=== PATIENT | male | born 1955 | race Caucasian/White ===

== ENCOUNTER 2019-08-11 06:29 | Inpatient (IN) ==
--- NOTE | 2019-07-30 16:24 | ANES ---
Anesthesia Pre Procedure Eval HOME MEDICATIONS rzunjsts-dib-cjejf acid 0.4 mg-lycopene 300 mcg-lutein 250 mcg tablet 1 tab PO DAILY 10/03/18 [Last Taken Unknown] apixaban 5 mg tablet 5 mg PO BID #180 tab 10/18/18 [Last Taken Unknown] atorvastatin 40 mg tablet 40 mg PO HS #90 tab 10/18/18 [Last Taken Unknown] metoprolol succinate ER 25 mg tablet,extended release 24 hr 75 mg PO DAILY #270 tab 10/18/18 [Last Taken Unknown] Allergies/Adverse Reactions: Allergies Allergy/AdvReac Type Severity Reaction Status Date / Time procaine [From Novocain] Allergy Intermediate FAINT, Verified 07/30/19 08:44 HEART RACES codeine AdvReac Mild NAUSEA, Verified 07/30/19 08:44 HEADACHE - Planned Procedure Planned Procedure: R Arthroplasty Total Knee Medication List Reviewed:: Yes Allergies Verified: Yes Medical History (Updated 07/30/19 @ 08:20 by Martha Cornejo) Essential hypertension (Chronic) Onset Date: 01/29/12 Hyperlipidemia (Chronic) Onset Date: 2002 Atrial fibrillation (Chronic) Onset Date: ~2009 Left inguinal hernia Brain vascular malformation Onset Date: Unknown "had an episode of feeling like a bomb went off in head" Abnormal colonoscopy Onset Date: 12/14/17 Tommeraasen-tubulovillous adenoma, serrated adenoma History of cardioversion Onset Date: ~2009 Normal colonoscopy Onset Date: 07/15/04 Dr. Rajni Carreon Onset Date: Unknown Surgical History (Updated 10/03/18 @ 14:44 by Vera Bardales RN) H/O right knee surgery Onset Date: ~1969 5 knee surgery's in the 70's for right knee injury-4 were scopes H/O shoulder surgery Onset Date: ~2005 right History of tonsillectomy Onset Date: Unknown History of vasectomy Onset Date: Unknown Family History (Updated 10/03/18 @ 14:20 by Vera Bardales RN) Brother Alive and well Sister Alive and well Father , 56 Lung cancer, Onset Age: 56 Heavy smoker Mother , 73 Heart failure, Onset Age: 73 - Family Anesthesia History Family History:: no untoward family reactions to anesthesia, no familial bleeding tendencies, no family history of clotting disorders, no family history of premature - Airway/Neck/Teeth Within Normal Limits:: Yes Teeth Condition: intact Denture Type: Perm crown/bridge Mallampatti Score: 1 Thyromental (T-M) distance: > 6 cm Mandibulo Hyoid distance: > 3 cm - Respiratory Smoking Status: Former smoker Discussed smoking cessation including day of surgery: No Sleep Apnea currently treated: No Sleep Apnea by current assessment: No Discussed Risks/Treatment of JESSICA: No - Cardiovascular Tolerate Activity: Fair Heart Sounds: S1 & S2, Regular - Anesthesia Assessment and Plan ASA Class: PS, III Anesthesia Type Plan: Block - Right ultrasound guided adductor canal nerve block, Spinal
[~2019-08-11 06:29] MED LIST: MORPHINE SULFATE 15 MG TABLET.SA PO PRN; NORMAL SALINE IJ PRN; ROPIVACAINE HCL IJ PRN; ROPIVACAINE HCL/PF 40 MG in NORMAL SALINE 16 ML IJ PRN; TRANEXAMIC ACID 1,000 MG in NORMAL SALINE 100 ML IV PRN; ceFAZolin SODIUM 1 GM VIAL IV PRN
[2019-08-11] MEDS: RINGER'S SOLUTION,LACTATED 1,000 ML IV PRN ×2 (07:13→09:30)
[2019-08-11] MEDS ORDERED: MAG HYDROX/ALUMINUM HYD/SIMETH 30 ML UDC PO PRN (10:14)
[2019-08-11] MEDS ORDERED: ONDANSETRON HCL/PF 2 MG/ML VIAL IV PRN (10:14)
[2019-08-11] MEDS ORDERED: MORPHINE SULFATE 2 MG/ML DISP.SYRIN IV PRN (10:14)
[2019-08-11] MEDS ORDERED: DEXTROSE 5%-LACTATED RINGERS 1,000 ML IV PRN (10:14)
[2019-08-11] MEDS ORDERED: diphenhydrAMINE HCL 50 MG/ML VIAL IV PRN (10:14)
[2019-08-11] MEDS ORDERED: ACETAMINOPHEN 500 MG TABLET PO PRN (10:14)
[2019-08-11] MEDS ORDERED: MAGNESIUM HYDROXIDE 30 ML UDC PO PRN (10:14)
[2019-08-11] MEDS ORDERED: ZOLPIDEM TARTRATE 5 MG TABLET PO PRN (10:14)
--- NOTE | 2019-08-11 10:20 | OR ---
Operative Report - Dictated Report Narrative: Date: 08/11/2019 Preoperative diagnosis: Right knee degenerative joint disease. Postoperative diagnosis: Right knee degenerative joint disease. Procedure: Right total knee arthroplasty. Surgeon: Abhilash Fitzpatrick M.D. Silverware Supervisor: Brad Scott PA-C (provided and essential set of skilled, educated hands that assisted with transfer, positioning, prepping, draping, manipulation, retraction, placement of jigs, injection, insertion of implants, irrigation, closure wounds, and dressings all of which could not be performed by the available surgical crew) Anesthesia: General and local periarticular joint injection. Complications: None Specimens: Bone for disposal per patient request. Estimated blood loss: Minimal. Tourniquet time: 125 Minutes at 325 millimeters of mercury. Retained implants: Depuy Attune size 7 right lugged cemented posterior stabilized femoral comp onent. Size 7 fixed-bearing cemented tibial platform. 7 by 8 millimeter posterior stabilized cross-linked tibial insert. 38 millimeter medialized patella button. Indications: Mr. Lizarraga is a 64-year-old gentleman who had long-standing right knee pain and arthrosis. This patient was followed in my clinic for period of time with significant complaints of right knee pain consistent with arthritic changes. He had failed conservative measures including, but not limited to, activity modification, passage of time, medications, and other conservative measures. Patient wished to proceed with surgical treatment. The risks, benefits, and alternatives were discussed in clinic. The risks of , blood clots, bleeding, infection, nerve/tendon blood vessel/ injury, malposition of components, intraoperative fracture, postoperative limited range of motion, persistent pain, failure of components, and need for additional procedures. Patient wished to proceed consent was obtained after answering all questions. Procedure: After marking the correct extremity on the floor, the patient was taken to the operating room. A timeout was performed. IV antibiotics consisting of Ancef were administered prior to the procedure. A general anesthetic was induced by anesthesia, per my request, on the operative table with all bony prominences well-padded. Kuo catheter was placed, and a bump was placed under the operative side buttock. SCDs and EDDIE hose were utilized on the nonoperative leg. A well-padded tourniquet was applied to the operative thigh. The operative leg was then pre-scrubbed with alcohol, prepped, and draped in a standard sterile fashion. After exsanguinating the extremity with an Esmarch bandage, the tourniquet was inflated. After marking out the anterior knee for standard incision centered over the patella, the skin was incised and dissected down to the joint retinaculum. The joint retinaculum was marked out as well as the horizontal axis of the patella, and a standard medial parapatellar arthrotomy was then made. The most proximal aspect of the quadriceps tendon and the patella tendon insertion were protected from release. A partial synovectomy was performed as well as a resection of the infrapatellar fat pad. The distal femoral fat pad proximal to the trochlea was also resected using cautery. The soft tissues were elevated off the medial aspect of the proximal tibia using a Dobbins elevator ensuring that we did not transect the medial collateral ligament. Upon initial evaluation range of motion was approximately 10 degrees to 100 degrees of flexion. There were signs of advanced arthrosis in the medial, lateral, and patellofemoral joint spaces. There were large marginal osteophytes which were removed with a rongeur. The knee was hyperflexed and the patella was tucked laterally. Protecting the surrounding soft tissues with Homans, an entry drill was placed down the femoral canal using Whitesides line for guidance into the entry point. The intramedullary femoral alignment taylor was utilized in order to cut the distal femur in 5 degrees of valgus resecting 10 millimeters of bone. Next the distal femur was sized to a size 7. A posterior referencing guide was utilized to place the distal femoral cutting block in 3 degrees of external rotation. This was pinned into place. The rotation was confirmed both visually and based on anatomic landmarks. The 4 in 1 cutting jig of the appropriate size was utilized in order to make all bony cuts. The angle wing was used to ensure no notching. Retractors were utilized in order to protect surrounding soft tissues. This cut did not result in any excessive notching. We then cut the box centered over the distal femur. This allowed for resection of the anterior and posterior cruciate ligaments. I then turned my attention to the preparation of the tibia. Using an extra medullary tibial alignment taylor, 3 millimeters of bone was resected off the medial articular surface. This was made perpendicular to the mechanical axis of the joint with the alignment taylor centered over the ankle mortise. The alignment taylor was checked and was noted to be parallel to the mechanical axis, centered over the medial one third of the tibial tubercle, paralleling the anterior surface of the tibia. We then turned our attention to the remaining meniscus and soft tissues. These were removed while protecting the surrounding ligaments and soft tissues. The marginal osteophytes off the anterior, posterior, medial, lateral aspects of the femur and tibia were removed. The tibia was sized out to a size 7. Next the tibia was drilled and punched in an externally rotated position. Next the trial femur and a series of tibial inserts were utilized in order to allow for full extension and maximal flexion. It was found that a 8 millimeter insert gave the best range of motion and stability at multiple flexion points as well as at full extension there was less than 2 mm of gapping both medially and laterally. There is minimal anterior translation with the knee at 90 degrees of flexion and no signs of being able to dislocate the knee. The patella was then prepared. The initial thickness was 27 millimeters. This was reamed down to 16 millimeters parallel to the anterior surface of the patella. It was sized out to a size 38 medialized patella button. This was then drilled and trialed. Without any medial restraint the patella tracked appropriately and did not sublux or dislocate. At this point, it was felt these were the appropriate sized implants, and all trials were removed. The standard periarticular joint injection consisting of ropivacaine was injected into the periarticular joint tissues. The bony surfaces were thoroughly irrigated with a pulsatile-suction saline irrigation device. A bone plug from the prior resected anterior chamfer cut was placed into the drill hole at the distal femur. The bony surfaces were then dried in preparation for placement of the implants. The cement was vacuum mixed per the business operations manager's instructions. The cement was placed on the dry bony surfaces and posterior aspect of the implants. The implants were impacted into place, removing all extruded cement. At this point anesthesia administered tranexamic acid per protocol intravenously. The knee was placed in extension with axial loading with the trial insert while the cement cured. Once the cement cured, all remaining extruded cement was removed. The knee was placed through a range of motion with the trial insert to ensure appropriate range of motion and stability. Final range of motion was approximately 0 to 120 degrees. The knee was again thoroughly irrigated with pulsatile saline lavage. The final polyethylene insert was then impacted into place ensuring no retained soft tissues. The remaining periarticular joint injection was injected. A medium Hemovac drain was placed exiting superior laterally. The knee was then placed over a triangle and the arthrotomy was closed with interrupted #1 Vicryl after thoroughly irrigating the joint. The deep and subcutaneous tissues were closed with interrupted 0 and 3-0 Vicryl respectively. Skin was closed with a running subcutaneous 3-0 Monocryl and Prineo Dermabond dressing. 4 x 4's, Sof-Rol, and a full leg Zen wrap were applied. All sponge, needle, blade, and instrument counts were correct prior to closing the wounds. Postoperative condition: The patient was awoken and transferred to the postanesthesia care unit in stable condition. Plan is to be admitted to the inpatient medical/surgical floor postoperatively for 24 hours of IV antibiotics, physical therapy, occupational therapy, and medical comanagement. Patient will be weightbearing as tolerated with range of motion as tolerated. DVT prophylaxis will be with SCDs, EDDIE hose, and pharmacological anticoagulation. Anticipated hospital stay is approximately 1-3 days.
--- NOTE | 2019-08-11 10:46 | ANES ---
Post Anesthesia Discharge - Transfer of Care Transfer of Care handoff given to nurse: Yes - Discharge from PACU Discharge from PACU when meets criteria: Yes
--- NOTE | 2019-08-11 11:15 | ANES ---
Post Anesthesia Assessment - Vital Signs Vitals: Last Vital Signs Temp 36.6 C 08/11/19 11:10 Pulse 91 08/11/19 11:10 Resp 14 08/11/19 11:10 BP 113/64 08/11/19 11:10 Pulse Ox 93 08/11/19 11:10 Airway Patency: Normal - Mental Status Level Of Consciousness: Awake - Pain Level Pain Score: 7 - N/V Assessment Nausea/Vomiting Presence: None - pain being treated Dehydration:: No
[2019-08-11] MEDS: oxyCODONE HCL/ACETAMINOPHEN 1 TAB TABLET PO PRN ×2 (11:26→16:18)
[2019-08-11] MEDS: ceFAZolin SODIUM 1 GM in DEXTROSE 5 % IN WATER 100 ML IV SCH ×4 (12:21→18:07)
[2019-08-11] MEDS ORDERED: APIXABAN 5 MG TABLET PO SCH (21:00)
[2019-08-11] MEDS ORDERED: ROSUVASTATIN CALCIUM 20 MG TABLET PO SCH (21:00)
[2019-08-11] MEDS ORDERED: SENNOSIDES/DOCUSATE SODIUM 1 TAB TABLET PO SCH (21:00)
[2019-08-11] MEDS: MORPHINE SULFATE 15 MG TABLET.SA PO SCH (21:01)
[2019-08-12] MEDS: ceFAZolin SODIUM 1 GM in DEXTROSE 5 % IN WATER 100 ML IV SCH ×2 (00:12)
[2019-08-12] MEDS: oxyCODONE HCL/ACETAMINOPHEN 1 TAB TABLET PO PRN ×2 (05:36→10:54)
[2019-08-12 06:53] LABS: Hematocrit 34.8 % (42.0-52.0); Mean Cell Volume 89.9 fl (78-100); Mean Corpuscular Hgb Conc 34.5 g/dl (32-36); Mean Platelet Volume 8.7 fl (8-11.3); Platelet Count 227 K/mm3 (150-450); Red Blood Count 3.87 M/mm3 (4.7-6.0); Red Cell Distribution Width 12.6 % (11.5-14.0); White Blood Count 15.8 K/mm3 (4.0-10.5)
[2019-08-12 07:00] LABS: Anion Gap 13.5 mmol/L (6.8-13.8); BUN/Creatinine Ratio 13.6 (9.0-21.6); Calcium * 8.3 mg/dL (7.9-10.9); Carbon Dioxide 25.6 mmol/L (24-32.6); Potassium 4.1 mmol/L (3.4-4.6)
[2019-08-12] MEDS: MORPHINE SULFATE 15 MG TABLET.SA PO SCH (08:14)
[2019-08-12] MEDS ORDERED: METOPROLOL SUCCINATE 25 MG TABLET.SA PO SCH (09:00)
[2019-08-12] MEDS ORDERED: APIXABAN 5 MG TABLET PO SCH (09:00)
[2019-08-12] MEDS ORDERED: MULTIVIT-MIN/FA/LYCOPEN/LUTEIN 1 TAB TABLET PO SCH (09:00)
--- NOTE | 2019-08-12 12:14 | DS ---
(1) Status post total right knee replacement Problem: Acute (2) Acute blood loss anemia Problem: Acute (3) Osteoarthritis of knee Problem: Chronic Qualifiers: Osteoarthritis type: post-traumatic Laterality: right Qualified Code(s): M17.31 - Unilateral post-traumatic osteoarthritis, right knee (4) Essential hypertension Problem: Chronic (5) Hyperlipidemia Problem: Chronic (6) Atrial fibrillation Problem: Chronic Qualifiers: Atrial fibrillation type: unspecified chronic Qualified Code(s): I48.20 - Chronic atrial fibrillation, unspecified; I48.2 - Chronic atrial fibrillation Date of Discharge:: 08/12/19 Description of Stay: Mr. Lizarraga was admitted to the floor after undergoing right total knee arthroplasty. Tolerated this well. Was admitted to the floor postoperatively for 24 hours of IV antibiotics, pain control, medical comanagement, and occupational and physical therapy. OT and PT were consulted to assist with activities of daily living and ambulation. Was made weightbearing as tolerated with range of motion as tolerated. Pain was initially controlled with IV regimen. This was transitioned to oral once tolerating a by mouth intake. Was resumed on home diet and medications. Had a Kuo catheter inserted and the operating room which was discontinued on postoperative day 1. A drain was placed intraoperatively into the knee which was discontinued on postoperative day 1. Lovenox SCD and EDDIE hose were utilized for DVT prophylaxis. Vital signs remained stable to the hospital course. Serial labs were obtained which showed a final hemoglobin of 12 down from 14.6 preoperatively . BMP was reviewed and was stable. Physical examination throughout the hospital course showed an extremity that had sensation that was intact to light touch, palpable pulses, a benign wound, motor intact to the toes, ankle, and knee. Knee range of motion was approximately 5 degrees to 75 degrees. Once an oral pain regimen was tolerated and physical therapy goals were met, it was felt that they were stable for discharge to home. Instructions: Continue with weightbearing as tolerated and range of motion as tolerated. It is OK to shower on the wound if it is not draining. If you note any drainage or for comfort you can cover with dry gauze and tape. Change every 2-3 days as needed. Continue with physical therapy. Resume home diet. Report any fever over 101.5 Fahrenheit, uncontrolled pain, increased drainage, foul odor of drainage, new or increased calf pain or shortness of breath, or any other significant complaints. Continue with EDDIE hose on the operative extremity until instructed otherwise. No driving until instructed otherwise. Follow up in approximately 10-14 days. Procedures Performed: see notes below List Procedures: right total knee arthroplasty Results and Findings: Lab Pending Results 08/12/19 06:35: WBC 15.8 H, RBC 3.87 L, Hgb 12.0 L, Hct 34.8 L, MCV 89.9, MCH 31.0, MCHC 34.5, RDW 12.6, Plt Count 227, MPV 8.7 08/12/19 06:35: Sodium 138, Plasma Sodium 138, Potassium 4.1, Chloride 103, Carbon Dioxide 25.6, Anion Gap 13.5, BUN 16, Creatinine 1.18, Est GFR (Non-Af Amer) 66, BUN/Creatinine Ratio 13.6, Random Glucose 127 H, Calcium 8.3 Discharge Location: Home Disposition: Home self-care Condition: Good Discharge Activity: Activity as tolerated, Partial-Weight bearing - with walker Discharge Diet: Low salt, Low fat/chol Referrals: Du Phelps DO [Primary Care Provider] - Additional Patient Instructions (free text): Physical Therapy at [facility] outpatient rehab on SundayAugust 13 at 2:00pm. Follow up Dr Fitzpatrick's office appointment on SundaySeptember 02 at 9:00am. Prescriptions (Any new or edited meds): Morphine Sulfate [Ms Contin] 15 mg PO Q12H #20 tablet.sa oxyCODONE HCL/ACETAMINOPHEN [Percocet 5 MG/325 MG] 2 tab PO Q4H PRN #60 tab PRN Reason: Moderate Pain (Pain Scale 4-6) Sennosides/Docusate Sodium [Senokot-S] 2 tab PO HS #30 tab Complete Home Medications List: Complete Home Medication List: imocpymo-nyn-vdyam acid 0.4 mg-lycopene 300 mcg-lutein 250 mcg tablet 1 tab PO DAILY 10/03/18 apixaban 5 mg tablet 5 mg PO BID #180 tab 10/18/18 atorvastatin 40 mg tablet 40 mg PO HS #90 tab 10/18/18 metoprolol succinate ER 25 mg tablet,extended release 24 hr 75 mg PO DAILY #270 tab 10/18/18 Morphine Sulfate [Ms Contin] 15 mg PO Q12H #20 tablet.sa 08/12/19 Sennosides/Docusate Sodium [Senokot-S] 2 tab PO HS #30 tab 08/12/19 oxyCODONE HCL/ACETAMINOPHEN [Percocet 5 MG/325 MG] 2 tab PO Q4H PRN #60 tab 08/12/19 Amb Orders for Discharge: PT Evaluation and Treatment* Facility: [facility], Location: Rehabilitation Services
[2019-08-12 14:35] VITALS: BP 125/85
== END 2019-08-12 15:05 | disposition home or self-care (01) | DRG 470 ==
LOC: MS 06:29 → EDSTATUS 08:00
PROVIDERS: ADMIT Orthopaedic Surgery; ATTEND Orthopaedic Surgery
DX: E78.5 Hyperlipidemia, unspecified; Z79.01 Long term (current) use of anticoagulants; I48.20 Chronic atrial fibrillation, unspecified; D62 Acute posthemorrhagic anemia; M17.11 Unilateral primary osteoarthritis, right knee; I10 Essential (primary) hypertension
CPT/HCPCS: 36415; 73560; 80048; 85027; 97110; 97116; 97161; 97165